=== PATIENT | male | born 1985 | race Caucasian/White ===

== ENCOUNTER 2021-10-13 21:36 | Emergency (ER) | payer SELFPAY ==
[~2021-10-13] VITALS: Ht 172.7 cm; Wt 217.7 kg
[~2021-10-13 21:36] MED LIST: ACETAMINOPHEN-1 EAC1 PO; ACETAMINOPHEN325 M1 PO; AMOXICILLIN500 MG PO; AMOXICILLIN875 MG PO; CEFPODOXIME PR200 MG PO; CLINDAMYCIN HC300 MG PO; DOXYCYCLINE HY100 MG PO; IBUPROFEN400 MG PO; MOTRIN IB200 MG PO; NAPROSYN500 MG PO; PERCOCET 7.5-31 EACH PO
--- NOTE | 2021-10-14 06:40 | EKG ---
[facility] [address] [facility] [place] [address] Signed Normal sinus rhythm Nonspecific intraventricular conduction delay Borderline ECG No previous ECGs available Confirmed by GARTH GRESHAM MD ([id number]) on 10/14/2021 6:39:52 AM Electronically Signed By: GARTH GRESHAM MD 10/14/21 0640 PATIENT NAME: ALECIA FARIAS Electrocardiogram DATE OF : 89 PHYSICIAN: GARTH GRESHAM MD REPORT #: [id number] REPORT IS CONFIDENTIAL AND NOT TO BE RELEASED WITHOUT AUTHORIZATION
== END 2021-10-14 00:55 | disposition home or self-care (01) ==
LOC: ED 21:36
DX: R55 Syncope and collapse (principal); E86.0 Dehydration; I10 Essential (primary) hypertension; F17.200 Nicotine dependence, unspecified, uncomplicated; Z88.5 Allergy status to narcotic agent
CPT/HCPCS: 93005; 93010; 99284-25

== ENCOUNTER 2021-11-21 15:19 | Emergency (ER) | payer OTHER ==
[~2021-11-21] VITALS: Ht 172.7 cm; Wt 208.8 kg
[2021-11-21] MEDS ORDERED: CEPHALEXIN500 M1 PO (17:40)
== END 2021-11-21 18:29 | disposition home or self-care (01) ==
LOC: ED 15:19
DX: L03.116 Cellulitis of left lower limb (principal); R60.0 Localized edema; I10 Essential (primary) hypertension; F17.200 Nicotine dependence, unspecified, uncomplicated; Z88.5 Allergy status to narcotic agent
CPT/HCPCS: 36415; 80048; 85025; 93971; 96365; 96375; 99284-25; J0696; J1885

== ENCOUNTER 2022-07-31 14:03 | Inpatient (IN) | payer OTHER ==
[~2022-07-31] VITALS: Ht 172.7 cm; Wt 187.0 kg
[~2022-07-31 14:03] MED LIST changes: +CEPHALEXIN500 M1 PO
[2022-07-31] MEDS ORDERED: LISINOPRIL-HCT1 EACH PO (14:29)
--- NOTE | 2022-07-31 17:45 | NUR ---
PT TO UNIT VIA STRETCHER, PIVOT TRANSFER TO BED. LLE 2+ EDEMA, HOT TO THE TOUCH. BLE REDDNESS NOTED AND OUTLINED. POSITIVE PEDAL PULSES TO BLE. PT TEMP 100.0. PT ORIENTED TO CALL LIGHT, VERBALIZES UNDERSTANDING. CALL LIGHT IN REACH.
--- NOTE | 2022-07-31 19:02 | NUR ---
SPOKE WITH DR LO REGARDING PT TEMP OF 100.0, PT PAIN 8/10, POTASSIUM LAB OF 3.1 WELL FLUIDS GIVEN IN THE ER. DR ORDERED TORDAOL AND OXYCODONE FOR PAIN, POTASSIUM REPLACEMENT, NO FURTHER FLUID ORDERS. DISCUSSED PAIN MEDICATION PLAN WITH PT, PT AGREEABLE.
--- NOTE | 2022-07-31 19:25 | NUR ---
ASSUMED CARE OF PT UPON RECEIVING BEDSIDE HANDOFF REPORT FROM DAY RN. PT AOX4, NAD. PT REQUESTS PAIN MED. WILL MEDICATE PER MAR, CONTINUE TO MONITOR, AND FOLLOW POC.
--- NOTE | 2022-07-31 20:34 | NUR ---
call light answered, pt up 2pa with walker to bathroom for bm and void. pt slow moving and somewhat unsteady on feet d/t cellulitis but improved w/ use of walker. pt back in bed, call light in reach. primary rn brooklynn updated and aware.
--- NOTE | 2022-07-31 22:53 | NUR ---
ble elevated w/ pillows for comfort, pt interactive with hospital staff. call light in reach. will continue to monitor.
--- NOTE | 2022-08-01 02:42 | NUR ---
PT REQUESTED REMOVAL OF L HAND IV, DUE TO IT BEING PAINFUL. SITE AND SURROUNDING SKIN WNL. NO EVIDENCE OF INFILTRATION OR PHLEBITIS. WILL CONTINUE TO MONITOR AND FOLLOW POC.
--- NOTE | 2022-08-01 06:45 | NUR ---
PT WITH NO ACUTE EVENTS OVERNIGHT. ELEVATED TEMPS RESPONSIVE TO ANTIPYRETIC MEDS. NO SPREAD OF ERYTHEMA TO BLE. VSS, NAD. PAIN WELL-CONTROLLED WITH CURRENT PAIN REGIMEN. WILL CONTINUE TO MONITOR AND FOLLOW POC.
--- NOTE | 2022-08-01 07:28 | NUR ---
RECIEVED REPORT FROM FUENTES ARRIOLA. PT IS SLEEPING, BREATHING IS UNLABORED AND EVEN. TYLENOL EFFECTIVE. NO NEEDS AT THIS TIME, CALL LIGHT IN REACH.
--- NOTE | 2022-08-01 08:27 | NUR ---
PT IS AWAKE AND ALERT IN BED. ASKED APPROPRIATE QUESTIONS. ASSESSMENT COMPLETE. BREAKFAST CAME WHILE I WAS THERE. PT LEFT SITTING UP IN BED, EATING BREAKFAST. ALL PERSONAL BELONGINGS IN REACH, CALL LIGHT IN REACH.
--- NOTE | 2022-08-01 09:37 | NUR ---
THIS RN TO ROOM TO ASSIST WITH VITALS AND I/Os. VITAL SIGNS STABLE. PT VOIDING QUANTITY SUFFICIENT. PT ENCOURAGED TO GET UP TO CHAIR. PT AGREES. 1 PERSON ASSIST UP TO CHAIR FOR LINE AND TUBE MANAGEMENT. LINENS CHANGED. ROOM CLEANED. NO ADDITIONAL REQUESTS OR COMPLAINTS. CALL LIGHT WITHIN REACH.
--- NOTE | 2022-08-01 15:20 | NUR ---
PT SHOWERED INDEPENDENTLY WITH THERMOSTAT REPAIRER ASSIST INTO AND OUT OF THE SHOWER. PT TOLERATED IT WELL. DELAY IN INFUSIONS DUE TO LENGTH OF POTASSIUM INFUSION AND ABX INFUSION. PLAN CLEARED WITH PHARMACY TO RETIME NEEDED.
--- NOTE | 2022-08-01 15:24 | NUR ---
NOTED THAT PT IS FALLING BEHIND IN HIS ABX INFUSIONS. PT FINISHED WITH SHOWER AND BACK TO BED. PT REPORTS HE WOULD LIKE RIGHT AC IV REMOVED IT IS "SORE AND UNCOMFORTABLE AND I CAN'T TASTE IT" WHEN IT IS FLUSHED. PHARMACIST CALLED REGARDING ABX'S THAT ARE DUE. AMA STATES TO GIVE CEFEPIME OVER 30 MINUTES AND THEN VANCO WHILE POTASSIUM CONTINUES INFUSING IN A SECOND IV LINE. PT VERY DIFFICULT IV START WITH LIMITED VEIN ACCESS. IV'S STARTED TO BOTH RIGHT AND LEFT FORARM PER PROTOCOL. BRISK BLOOD RETURN NOTED FROM BOTH SITES. CEFEPIME GIVEN OVER 30 MINUTES THROUGH LEFT IV SITE FOLLOWED BY VANCO. POTASSIUM INFUSING THROUGH LEFT IV SITE. PT TOELRATED IV STARTS WELL AND IS TOLERATING INFUSIONS WELL. PT REPORTS HIS SHOWER "FELT REALLY GOOD." PT REPORTS 8/10 PAIN IN LEGS AFTER SHOWER AND REQUESTS "AN ANTIINFLAMATORY." SEE MAR FOR MEDICATION GIVEN. NO ADDITIONAL REQUESTS OR COMPLAINTS. PTS PRIMARY RN UPDATED. CALL LIGHT WITHIN REACH. BED RAILS UP.
--- NOTE | 2022-08-01 17:53 | NUR ---
PT CALL LIGHT ON. PT REQUESTS PAIN MEDICATION. PUMP ALARMING, POTASSIUM INFUSION COMPELTE. RIGHT FORARM IV FLUSHED AND SALINE LOCKED, ALCOHOL CAP APPLIED. PT REPORTS 8/10 PAIN IN BILATERAL LOWER LEGS. SEE MAR FOR MEDICATION GIVEN. PT HAS LEFT LEG IN SLING INTERMITTANTLY. FRIENDS/FAMILY AT BEDSIDE. NO ADDITIONAL REQUESTS OR COMPLAINTS. CALL LIGHT WITHIN REACH. BED RAILS UP.
--- NOTE | 2022-08-01 19:30 | NUR ---
ASSUMED CARE OF PATIENT UPON RECEIVING BEDSIDE HANDOFF REPORT FROM DAY NURSE. PT RESTING IN BED, AOX4, NAD, NO C/O, PAIN WELL-CONTROLLED. WILL CONTINUE TO MONITOR AND FOLLOW POC.
--- NOTE | 2022-08-01 22:40 | NUR ---
IV PUMP ALARMING, ISSUE RESOLVED. IV SITE WNL, IV ABX CONTINUES TO INFUSE DIRECTED. SANDWHICH BOX ALSO PROVIDED PER pt REQUEST. CALL LIGHT IN REACH.
--- NOTE | 2022-08-02 06:50 | NUR ---
PT WITH NO ACUTE OVERNIGHT EVENTS. WILL CONTINUE TO MONITOR AND FOLLOW POC.
--- NOTE | 2022-08-02 07:37 | NUR ---
REPORT RECEIVED FROM FUENTES ARRIOLA. PT RESTING IN BED ON LEFT SIDE, AWAKE AND ALERT. PT REPORTS 4/10 PAIN IN BLE AND DENIES NEED FOR ADDITIONAL PAIN MEDICATION AT THIS TIME. NO ADDITIONAL REQUESTS OR COMPLAINTS AT THIS TIME. CALL LIGHT WITHIN REACH.
--- NOTE | 2022-08-02 08:23 | NUR ---
MORNING ASSESSMENT AND MEDICATION DUE. THIS RN TO ROOM AND PT FOUND UP IN CHAIR. PT REPORTS HE GOT HIMSELF UP TO THE CHAIR. PT REPORTS THAT HE GETS ARROUND AT HOME WITHOUT FALLS BUT DOES HAVE DIZZINESS AT HOME WHICH HE ATTRIBUTES TO HIS BLOOD PRESSURE PILLS. PT STATES HE TAKES LISINOPRIL WITH HCTZ AT HOME ONCE A DAY IN THE MORNING. NOTED THAT BLOOD PRESSURE PILL WAS HELD LAST NIGHT. MD CONSULTED AND LISINOPRIL DC'D FOR THIS MORNING. AWAITING NEW ORDERS. PT DENIES DIZZINESS AT THIS TIME BUT IS NOTED TO UNSTEADY ON FEET WHICH HE ATTRIBUTES TO PAIN. PT RPEORTS 5/10 PAIN BLE AND DECLINES TYELNOL AND TORADOL AT THIS TIME STATING HE WILL "JUST WAIT FOR THE OTHER ONE." FALL PREVENTION EDUCATION DONE WITH PT AND PT VERBALIZES UNDERSTANDING AND STATES HE WILL CALL WHEN NEEDING TO GET UP. BMAT LEVEL 3 AT THIS TIME. PT ALERT AND ORINTED TO ALL. PT DENEIS NUMBNESS OR TINGLING TO EXTREMITIES. HEART TONES REGULAR. LUNG SOUNDS CLEAR. EDEMA TO BLE CONTINUES. RIGHT LOWER EXTREMITY MEASURES AT 51CM TODAY AT WIDES POINT AND LEFT LOWER EXTREMITY MEASURES AT 54CM AT WIDEST POINT. NOTED THAT THIS IS LARGER THAN LAST NIGHTS MEASUREMENTS. BILATEARL LOWER EXTREMITIES ARE WILLY, WARM AND REDENED IN APPEARANCE. REDENESS REMAINS WITHIN OUTLINED AREAS. STRONG PLANTAR AND DORSI FLEXION PRESENT. PT REMAINS UP TO CHAIR, EATING BREAKFAST. NO ADDITIONAL REQUESTS OR COMPLAINTS. CALL LIGHT WITHIN REACH.
--- NOTE | 2022-08-02 10:22 | NUR ---
NEW MEDICATION DUE. PT REMAINS UP TO CHAIR. PT VERBALIZES UNDERSTANDING OF PLAN OF CARE AND MEDICATION. BLOOD PRESSURE REMAINS IN THE 140'S. SEE MAR FOR MEDICATION GIVEN. PT REPORTS 7/10 PAIN IN BLE AND REQUESTS ADDITONAL MEDICATION, SEE MAR FOR MEDICATION GIVEN. NO ADDITIONAL REQUESTS OR COMPLAINTS. CALL LIGHT WITHIN REACH. BED RAILS UP.
--- NOTE | 2022-08-02 12:15 | NUR ---
LUNCH DELIVERED TO PT. PT REMAINS UP TO CHAIR. PT REPORTS PAIN HAS IMPROVED NOW 4/10 IN BILATERAL LOWER EXTREMITIES. PT DENIES NEED FOR ADDITIONAL PAIN MEDICATION. URINAL EMPTIED OF 350 ADN 450ML CLEAR YELLOW URINE. PT DENEIS ADDITIONAL REQUESTS OR COMPLAINTS. CALL LIGHT WITHIN REACH.
--- NOTE | 2022-08-02 13:38 | NUR ---
AFTERNOON ASSESSMENT AND MEDICATION DUE. PT RESTING IN BED ON BACK IN BED, SUPINE POSITION LEANING SLIGHTLY TO RIGHT SIDE. PT AWAKENS TO MOVEMENT IN THE ROOM AND REPORTS "I THINK I WAS HOLDING MY BREATH IN MY SLEEP THERE." PT REPORTS HE HAS BEEN TESTED FOR SLEEP APENEA BUT HAS "NEVER GOT THAT MACHINE." EDUCATION DONE WITH PT REGARDING SLEEP APENEA AND FOLLOWING UP WITH HIS PRIMARY CARE PROVIDER. PT VERBALIZES UNDERSTANDING AND STATES HE PLANS TO FOLLOW UP. PT ALERT AND OREINTED TO ALL. CMS REMAINS INTACT. PT REPORRTS PAIN IS WELL CONTROLLED AT A 3/10 AT THIS TIME. PT STATES "WOW THAT PAIN STUFF REALLY TAKES IT OUT OF YOU," HINTING THAT PAIN MEDICATION IS VERY STRONG FOR HIM. PT ENCOURAGED TO TRY OTHER MEDICATIONS SUCH TYELNOL AND TORDAL MOVING FORWARD. PT DENIES NEED FOR ADDITIONAL PAIN MEDICATION AT THIS TIME. SWELLING, REDNESS AND HEAT CONTINUE TO BLE. REDNESS REMAINS WITHIN THE MARKED AREAS. LEFT LEG MEASURES 54CM AT WIDEST/MARKED PART. RIGHT LEG MEASURES 50CM AT WIDES/MARKED PART. PT COTNINUES TO KEEP RIGHT LEG ELEVATED IN THE [place] SLING AT TIMES. NO ADDITIONAL REQUESTS OR COMPLAINTS. CALL LIGHT WITHIN REACH. BED RAILS UP.
--- NOTE | 2022-08-02 15:26 | NUR ---
PT HOOKED UP TO DIEUDONNE CALHOUN. WRAPPED AC HE BENDS IT. EMPTIED URINAL. PT DENIES FURTHER CONCERNS.
--- NOTE | 2022-08-02 16:33 | NUR ---
THIS RN TO ROOM TO CHECK ON PT. PT RESTING ON RIGHT SIDE, TALKING WITH FRIENDS ON THE PHONE. PT RPEORTS 7/10 PAIN IN BILATERAL LEGS AND REQUESTS PAIN MEDICAITON, SEE MAR FOR MEDICATION GIVEN. ICE WATER REFILLED. NO ADDITIONAL REQUESTS OR COMPLAINTS. CALL LIGHT WITHIN REACH. BED RAILS UP.
--- NOTE | 2022-08-02 16:56 | NUR ---
PT HERE FOR SPESIS RELATED TO BLE CELLULITIS. PT UP WITH STAND BY ASSIST IN ROOM TO CHAIR AND TO AMBULATE THIS SHIFT. PT TOLERATING REGULAR DIET WITH GOOD APPITTIE. BLOOD PRESSURE MEDICATIONS WITH HCTZ RESUMED WITH GOOD URINE OUTPUT RESULTS. PRN PAIN MEDICATION GIVE. LEGS MEAUSRED: REDENESS, WARMTH AND WILLY SKIN BILATERALLY TO LOWER LEGS REMAINS, GENERALLY UNCHANGED. PT ENCOURAGED TO KEEP LEGS ELEVATED. IV ABX GIVEN. PT VOIDING QUANITITY SUFFICIENT. PT USES CALL LIGHT AND MAKES NEEDS KNOWN.
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
--- NOTE | 2022-08-02 19:20 | NUR ---
ASSUMED CARE OF PT UPON RECEIVING BEDSIDE HANDOFF REPORT FROM DAY NURSE. PT RESTING IN BED, NAD, NO C/O. ENCOURAAGED PT TO ELEVATE LOWER EXTREMITIES. WILL CONTINUE TO MONITOR AND FOLLOW POC.
--- NOTE | 2022-08-03 06:00 | NUR ---
PATIENT TOOK SHOWER. CHANGED BED LINEN. PATIENT IS UP IN THE CHAIR. CALL LIGHT AND SIDE TABLE WITHIN REACH. PRIMARY RN IS IN THE ROOM.
--- NOTE | 2022-08-03 07:20 | NUR ---
PT HAD NO ACUTE OVERNIGHT EVENTS. VSS, NAD, PAIN WELL-CONTROLLED WITH CURRENT PAIN REGIMEN. ATTEMPTED IV START X2 ON PT IN ORDER TO RUN SCHEDULED ABX, AND WAS UNABLE TO GAIN ACCESS. ENDORSED TO DAY NURSE. HANDED OFF CARE OF PATIENT TO DAY NURSE AT BEDSIDE REPORT.
--- NOTE | 2022-08-03 07:30 | NUR ---
REPORT RECEIVED FROM FUENTES ARRIOLA. PT UP TO CHAIR. PT REPORTS HE SLEPT WELL LAST NIGHT. PT REPORTS PAIN IS WELL CONTROLLED AT THIS TIME CURRENTLY 4-11/04. PT DENIES NEED FOR ADDITIONAL PAIN MEDICAITON. NO IV LINE CURRENTLY IN PLACE. FLAKO STATES SHE ATTEMPTED X1. FUENTES PARKER TO BEDSIDE TO ATTEMPT LINE START. PT DENIES ADDITIONAL REQUESTS OR COMPLAINTS AT THIS TIME. CALL JUSTIN CARRILLO.
--- NOTE | 2022-08-03 09:11 | NUR ---
MORNING ASSESSMENT AND MEDICATION DUE. PT REPORTS BURNING AT LEFT ARM IV SITE JUST STARTED BY FUENTSE KIRBY. LUMP NOTED AROUND IV SITE, APPEARS INFILTRATED. IV DC'D PER PROTOCOL. ICE APPLIED PER PROTOCOL FOR VANCO INFILTRATION. NEW IV STARTED TO RIGHT UPPER ARM PER PROTOCOL. BRISK BLOOD RETURN NOTED. IV ABX INFUSIONS CONTINUED. PT REPORTS 7/10 PAIN IN BILATERAL LEGS. PT REQUESTS PAIN MEDCIATION, SEE MAR FOR MEDICATION GIVEN. PT ALERT AND OREINTED TO ALL. LUNG SOUNDS CLEAR. HEART TONES REGULAR. ABDOMEN SOFT AND NON TENDER. BILATERAL LOWER EXREMITES REMAIN HOT TO TOUCH, REDDENEDS AND WILLY IN APPEARANCE. PT REPORTS LEGS FEEL WORSE TODAY. PT EXPRESSES OPINION THAT HIS LEGS ARE NOT IMPROVING AND CONTINUE TO GROOW WORSE. REDNESS REMAINS WITHIN THE MARKED AREAS AND WARMTH UNCHANGED. LEFT LEG MEASURES AT 53CM TODAY AT LARGEST CIRCUMFRENCE. RIGHT LEG MEAUSRES AT 48CM. WRINKLES APPARENT ON LOWER LEGS AT THIS TIME SUGGESTING EDEMA MAY BE IMPROVING. PT REPROTS NORMAL, ALTHOUGH PAINFUL. SENSATION TO BLE. MOVEMENT INTACT ALTHOUGH PT DOES NOT WANT TO PUT WEIGHT ON LEFT LLE R/T PAIN THIS MORNING. 1 PERSON ASSIST BACK TO BED. PT VERY UNSTABLE ON FEET. LEFT LEG ELEVATED IN SLING. PT DENIES ADDITIONAL REQUESTS OR COMPLAINTS. CALL LIGHT WIHTIN REACH. BED RAILS UP.
--- NOTE | 2022-08-03 10:14 | NUR ---
THIS RN TO ROOM TO CHECK ON PT. PT RESTING ON RIGHT SIDE WITH EYES CLOSED. RESPIRATIONS EVEN AND UNLABORED. MILD SNORNING NOTED. PT ALLOWED TO REST UNDSTURBED. CALL LIGHT WITHIN REACH. BED RAILS UP.
--- NOTE | 2022-08-03 11:12 | NUR ---
THIS RN TO ROOM TO CHECK ON PT. PT RESTING ON BACK, SUPINE POSITION WITH EYES CLOSED, RESPRIATIONS EVEN AND UNLABORE. SNORNING NOTED. IV PUMP ALARMING, VANCO INFUSION COMPLETE. CEFEPIME INFUSION CONTINUES. PT ALLOWED TO REST. CALL LIGHT WIHTIN REACH. BED RAILS UP.
--- NOTE | 2022-08-03 12:12 | NUR ---
THIS RN TO ROOM TO CHECK ON PT. PT AWAKE AND RESTING IN BED, HEAD OF BED AT 27 DEGREES. PT REPORTS HE "HAD A REALLY GOOD NAP." PT REPORTS 6/10 PAIN IN BLE AND REQEUSTS PAIN MEDICATION, SEE MAR FOR MEDICATION GIVEN. PT ENCOURAGED TO ELEVATE LEGS, LEFT LEG PLACED BACK IN SLING AND RIGHT LEG PLACED ON PILLOWS. PHOTOGRAPHS TAKEN OF LEGS. REDNESS TO LEFT FOOT NOTE TO BE 0.5CM OUT SIDE OF MAKED LINE TOWARD MIDDLE TOE. PT REPORTS HE SPOKE WITH DR LO AND VERBALIZES UNDERSTANDING OF PLAN OF CARE. NO ADDITIONAL REQUESTS OR COMPLAINTS. ICE WATER REFILLED. [facility].
--- NOTE | 2022-08-03 12:15 | NUR ---
INTO PATIENT ROOM, PATIENT AWAKE WATCHING TV. PATIENT STATES HE LIVE IN AN APARTMENT WITH HIS FAMILY AND DOGS. PATIENT DOES HAVE TWO FLIGHTS ON STAIRS INTO THE HOME, BUT USUALLY CAN MANAGE THEM WITH NO ISSUES. PATIENT DOES NOT REQUIRE ANY DME. PATIENT IS ESTABLISHED WITH AND HAS BEEN VISITING DR. GRANADO. DENIES HOUSING, UTILITY AND FOOD DISPARITIES. NO FURTHER QUESTIONS OR CONCERNS AT THIS TIME.
--- NOTE | 2022-08-03 13:55 | NUR ---
AFTERNOON ASSESSMENT AND MEDICATION DUE. PT RESTING IN BED, VISITING WITH A FRIEND AND HIS 2 YEAR OLD. PT REPORTS 5/10 PAIN AND REQUESTS MEDICATION, SEE MAR FOR MEDICATION GIVEN. IV ASSESSED, WNL, BLOOD RETURN NOTED. NO REDNESS OR SWELLING NOTED. PT REMAINS ALERT ADN OREINTD WITH SENSATION INTACT AND CMS INTACT. LUNG SOUNDS REMAIN CLEART. HEART TONES REGULAR. REDNESS CONTINUES TO CREAP OUTSIDE OF MARKED LINE ON PTS LEFT FOOT. NOW RED UP TO MIDDLE TOE. NEW LINE MARKED. IMAGING ORDERD AND PT UPDATED ON PLAN FOR IMAGING. ABDOMEN SOFT AND NON TENDER. BOWEL TONES ACTIVE. PT CONTINUES TO REPORT MILD CONSTIPATION. MEDICATIN GIVEN. SWELLING AND REDNESS TO INFILTRATED IV SITE TO LEFT AC RESOLVED. PT DENIES PAIN AT SITE. IMAGING ARRIVED TO TAKE PT FOR CT SCAN. PT TRASFERS SELF TO WHEELCHAIR. PT TO CT. NO ADDITIONAL REQUESTS OR COMPLAINTS. CALL LIGHT BUDDY CARRILLO.
--- NOTE | 2022-08-03 14:36 | NUR ---
PT RETURNED FROM IMAGING. PT TRANSFERSE SELF BACK TO BED WITH 1 PERSON ASSIST. LUNCH REHEATED FOR PT. PT SITTING ON EDGE OF BED FOR LUNCH. NO ADDITIONAL REQUESTS OR COMPLAINTS. CALL LIGHT WITHIN REACH. BED RAILS UP.
--- NOTE | 2022-08-03 15:24 | NUR ---
ABX DUE. PT RESTINGON RIGHT SIDE WITH EYES CLOSED. IV ASSESSED, WNL. NO S/S OF PHLEBITIS NOTED. IV ABX STARTED. PT CONTINUES RESTING WITH EYES CLOSED. LEFT LEG ELEVATED IN SLING. NO ADDITIONAL NEEDS. CALL LIGHT WITHIN REACH. BED RAILSUP.
--- NOTE | 2022-08-03 16:30 | NUR ---
THIS RN TO ROOM TO CHECK ON PT. PT RESTING IN BED ON LEFT SIDE WATCHING VIDEOS ON HIS PHONE. IV ABX INFUSING. LEFT LEG ELEVATED IN SLING. PT REPORTS PAIN IS WELL CONTROLLED AND DENIES NEED FOR ADDITONAL PAIN MEDICATION AT THIS TIME. ICE WATER REFILLED. URINALS EMPTIED OF CLEAR YELLOW URINE. NO ADDITIONAL REQUESTS OR COMPLAINTS. CALL LIGHT WITHIN REACH. BED RAILS UP.
--- NOTE | 2022-08-03 17:01 | NUR ---
PT HERE FOR SPESIS RELATED TO BLE CELLULITIS. PT UP WITH STAND BY ASSIST IN ROOM TO CHAIR, SPENT MOST OF THE DAY IN BED. PT TOLEARTING REGULAR DIET W/GOOD APPITTIE. BLOOD PRESSURE MEDICATIONS WITH HCTZ TRANSITIONED TO PTS HOME MEDICATION. PRN PAIN MEDICATIONS GIVEN, PT REPORTS INCREASED PAIN TO LLE THIS SHIFT. LEGS MEAUSRED: REDENESS, WARMTH AND WILLY SKIN BILATERALLY TO LOWER LEGS REMAINS, LEFT FOOT SHOWS INCREASED ERYTHEMA UP TOP OF FOOT TOWRAD MIDDLE TOE. NEW AREA OUTLINE. CT SCAN PERFORMED. PT ENCROAUGED TO KEEP LEGS ELEVATED. IV ABX GIVEN. PT VOIDING QUANITITY SUFFICIENT. PT USES CALL LIGHT AND MAKES NEEDS KNOWN.
--- NOTE | 2022-08-03 17:06 | NUR ---
pt sitting up in chair for meal. call light within reach no further tasks at this time
--- NOTE | 2022-08-03 17:42 | NUR ---
THIS RN TO ROOM TO CHECK ON PT. DINNER DELIVERED. PT TALKING WITH FRIEND ON THE PHONE. PT SMILING AND LAUGHING WITH FRIEND. VANCO INFUSION COMPLETE. CEFEPINE CONTINUES. IV REMAINS WNL. NO S/S OF PHLEBITIS NOTED. PT DENIES ADDITIONAL REQUESTS OR COMPLAINTS. CALL LIGHT WITHIN REACH.
--- NOTE | 2022-08-03 18:53 | NUR ---
THIS RN TO ROOM TO CHECK ON PT. PT REMAINS UP TO CHAIR. PT REPORTS 6/10 PAIN IN BLE, SEE MAR FOR MEDICATION GIVEN. URINAL EMPTIED OF 325 CLEAR YELLOW URINE. PT ANTICIPATING ARRIVAL OF BARIATRIC BED AND REQUESTS TO REMAIN UP TO CHAIR AT THIS TIME. NO ADDITONAL REQEUSTS OR COMPLAINTS. CALL LIGHT WITHIN REACH. BED RAILS UP.
--- NOTE | 2022-08-03 19:19 | NUR ---
REPORT RECEIVED FROM DAY SHIFT RN. PT SITTING IN RECLINER ALERT AND ORIENTED. DENIES NEEDS. WHITE BOARD UPDATED. CALL LIGHT IN REACH.
--- NOTE | 2022-08-03 20:15 | NUR ---
BARIATRIC BED CAME. BED MADE. V/S AND I&O'S TAKEN AND RECORDED. FAMILY IN THE ROOM. PRIMARY RN WAS IN THE ROOM.
--- NOTE | 2022-08-03 20:30 | NUR ---
EVENING ASSESSMENT COMPLETE. SCHEDULED MEDS ADMIN PER EMAR. IV ABX INFUSING WNL. PT REPORTS BLE PAIN IS TOLERABLE AT THIS TIME. BLE ELEVATED IN RECLINER. EDEMA AND REDNESS/WARMTH NOTED. REDNESS REMAINS WITHIN OUTLINE. VISITOR IN ROOM. BARIATRIC BED DELIVERED AND MADE. PT DENIES QUESTIONS OR CONCERNS. CALL LIGHT IN REACH.
--- NOTE | 2022-08-03 21:15 | NUR ---
PATIENT CALLED STATED HE IS READY TO GO TO BED. SBA USING WALKER FROM CHAIR TO BED. CALL LIGHT AND SIDE TABLE WITHIN REACH. NO FURTHER NEEDS AT THIS TIME.
--- NOTE | 2022-08-03 22:41 | NUR ---
CALL LIGHT ANSWERED. PT REPORTS PAIN WITH IV ABX INFUSION. IV STOPPED. DIFFICULT AND PAINFUL WITH FLUSH. IV IN RIGHT UPPER ARM DC'D WNL. TIP INTACT. SLIVER LAP MACHINE TENDER TO COME LOOK FOR NEW IV ACCESS PT IS DIFFICULT START.
--- NOTE | 2022-08-04 00:01 | NUR ---
IV X 2 STARTED BY SDET RN. PT JOSY WELL. IV ABX INFUSING WNL. PT REPORTS BLE PAIN /. PRN FOR PAIN ADMIN PER EMAR. BLE ELEVATED ON PILLOWS. NO FURTHER NEEDS.
--- NOTE | 2022-08-04 01:47 | NUR ---
ANSWERED BATHROOM LIGHT. PATIENT IS BACK IN BED. NO BM THIS TIME ONLY URINE UNMEASURED. PRIMARY RN WAS WITH PATIENT.
--- NOTE | 2022-08-04 02:06 | NUR ---
IV ABX INFUSING NWL. PT REPORTS BLE PAIN 11/04. PRN FOR PAIN ADMIN PER EMAR. FRESH WATER PROVIDED. NO FURTHER NEEDS.
--- NOTE | 2022-08-04 06:19 | NUR ---
VS AND I&O OBTAINED. SL IN RIGHT AC FLUSHED WITH NS. BRISK BLOOD RETURN NOTED. IV ABX INFUSING PER ORDER. PT DENIES PAIN WITH INFUSION. NO FURTHER NEEDS.
--- NOTE | 2022-08-04 07:07 | NUR ---
REPORT RECEIVED FROM FUENTES LIU. PT RESTING ON LEFT SIDE WATCHING VIDEOS ON HIS PHONE. PT REPORTS 5/10 PAIN IN BLE BUT DECLINES PAIN MEDICATION AT THIS TIME. PT DENIES ADDITIONAL REQUESTS OR COMPLAINTS. CALL LIGHT WITHIN REACH. BED RAILS UP.
--- NOTE | 2022-08-04 07:47 | NUR ---
MORNING ASSESSMENT AND MEDICATION DUE. PT RESTING ON LEFT SIDE WITH EYES CLOSED. PT AWAKENS TO MOVEMENT IN THE ROOM. PT REPORTS ONGOING 5/10 PAIN IN BILATEARL LOWER EXTREMTIES AND REQUESTS PAIN MEDICATION. SEE MAR FOR MEDICATION GIVEN. PT EDUCATION DONE REGARDING CONSTIPATION AND PAIN MEDICATION. PT VERBALIZES UNDERSTANDING AND AGREES TO CONTINUE BOWEL MEDICATIONS. PT REPORTS ONGOING CONSTIPATION BUT STATES HE IS PASSING GAS. BOWEL TONES ACTIVE, ABDOMEN SOFT AND NON TENDER. PT ALERT AND OREINTED TO ALL. HEART TONES REGULAR. LUNG SOUNDS CLEAR. +3 PITTING EDEMA CONTINUES TO BLE. BOTH LOWER LEGS HOT TO TOUCH, WILLY AND VERY PAINFUL. LEFT LOWER EXTREMITY MEASURES 51CM, RIGHT LOWER EXTREMITY 48CM AT LARGEST CIRCUMFRENCE. WRINKELING TO SKIN NOTED SUGGESTING POSSIBLE IMPROVEMENT TO EDEMA. REDNESS REMAINS WITH IN MARKED AREA. PT REPORTS HIS LEFT ANKLE IS THE MOST SORE AND PAINFUL. PT NOTED TO BE VOIDING LARGE AMOUNTS, NEAR 3000ML IN THE LAST 8 HOURS. PT ALSO DRINKING LARGE AMOUNTS (NEAR 1200ML IN THE LAST 8 HOURS). MEDICATIONS GIVEN. PT REPORTS HE TAKES HIS BLOOD PRESSURE MEDICATIONS AT HOME INTERMITTANLY "WHEN I FEEL LIKE IT." PT COMMENTS THAT HE "DID FEEL ANY DIFFERENT" WHEN TAKING HIS BLOOD PRESSURE MEDICATION. EDUCATION DONE WITH PT REGARDING BLOOD PRESSURE CONTROL AND MEDICATION, PT VERBALIZES UNDERSTANDING. NO ADDITIONAL REQUESTS OR COMPLAINTS AT THIS TIME. CALL LIGHT WITHIN REACH. BED RAILS UP.
--- NOTE | 2022-08-04 09:36 | NUR ---
THIS RN TO ROOM TO CHECK ON. PT CONTINUES RESTING IN BED. PT ENCORUAGED TO GET UP TO CHAIR. PT DECLINES AT THIS TIME. LEGS NO LONGER ELEVATED. PT ENCOARUGED TO ELEVATE LEGS, AGREES. VITAL SIGNS STABLE BUT FOR TEMPERATURE THAT WAS ORIGINALLY NOTED TO BE 99.5. I.S. PROVIDED. PT DEMONSRATES USE REACHING 2500ML X10. TEMPERATURE REASSED AND FOUND TO BE 99.0. PT DENIES CHILLS OR FEELING COLD. PT REPORTS PAIN HAS IMPROVED NOW AT 4/10 IN BLE. PT REQUESTS ADDTIIONAL MEDICATION. SEE MAR FOR MEDICATION GIVEN. VANCO INFUSION COMPLETE. CEFEPIME INFUSION CONTINUES. NO ADDITIONAL REQUESTS OR COMPLAINTS. CALL LIGHT WITHIN REACH. BED RAILS UP.
--- NOTE | 2022-08-04 10:32 | NUR ---
THIS RN TO ROOM TO CHECK ON PT. PT SITTING ON EDGE OF BED. PT REPORTS 4/10 PAIN CONTINUES IN BLE. PT REPORTS PAIN IS WORSE WITH LEGS DOWN AND BETTER WHEN THEY ARE ELVATED. PT REPORTS THROBBING WITH LEGS DOWN. PT UP TO STAND AND USE URINAL. PT UP TO CHAIR AND REQUESTS "THE OTHER BED" BACK TO HIS ROOM. RIVERA CLEAR UPDATED FOR BED EXCHANGE. STAND BY ASSIST UP TO CHAIR FOR LINE AND TUBE MANAGEMENT. PT DENIES ADDITIONAL REQUESTS OR COMPLAINTS. CALL JUSTIN CARRILLO.
--- NOTE | 2022-08-04 10:54 | NUR ---
THIS MORNING BEFORE BREAKFAST CAME PATIENT WASHED HIS FACE AND DID ORAL CARE.
--- NOTE | 2022-08-04 11:06 | NUR ---
HOURLY ROUNDING: PT RESTING IN CHAIR, REPORTS HE ALMOST FEEL ASLEEP. PT REPORTS PAIN REMAINS WELL CONTROLLED AND DENIES NEED FOR ADDITIONAL PAIN MEDICAITONS. PT ENCOAURGED TO REST. PT REMAINS UP TO CHAIR. CALL LIGHT WITHIN REACH.
--- NOTE | 2022-08-04 11:30 | NUR ---
Spoke with pt and he denies needs. States he has difficulty walking. He has a walker at home.
--- NOTE | 2022-08-04 12:07 | NUR ---
LUNCH DELIVERED TO PT. PT RESTING IN CHAIR WITH EYES CLOSED. PT AWAKENS TO MOVEMENT IN THE ROOM. PT REPORTS A HEADACHE. PT DOES NOT RATE PAIN STATING "I JUST NEED TO SLEEP." COOL CLOTH PROVIDED. LIGHTS DIMMED. PT DENIES ADDITIONAL REQUESTS OR COMPLAINTS. CALL LIGHT WITHIN REACH.
--- NOTE | 2022-08-04 13:14 | NUR ---
THIS RN TO ROOM TO CHECK ON PT. PT REMAINS UP TO CHAIR, REPORTS HE JUST WOKE UP FROM HIS NAP. PT REPORTS HEADACHE HAS RESOLVED. PT REPORTS 4/10 PAIN IN BLE AND DENEIS NEED FOR PAIN MEDICATION. NO ADDITIONAL REQUESTS OR COMPLAINTS. CALL LIGHT WITHIN REACH. REGIONAL ACCOUNT DIRECTOR AT BEDSIDE WORKING WITH PT.
--- NOTE | 2022-08-04 14:43 | NUR ---
AFTERNOON ASSESSMENT AND MEDICATION DUE. ABX HUNG BY LISA, RN, WHO REPORTS THAT PTS LEFT AC IV WAS PAINFUL WITH FLUSHING. IV ASSESSED, BY THIS RN, CONTINUES TO FEEL PAINFUL "LIKE BEFORE IT WENT BAD THE OTHER DAY." IV DC'D PEROTOCOL, GAUZE AND COBAN APPLIED. RIGHT AC IV REMAINS WNL, NO S/S OF PHELEBITIS NOTED. IV ABX INFUSING. PT REPORTS ONGOING 5/10 PAIN IN BLE. SEE MAR FOR MEDICATION GIVEN. PT ALERT AND ORIETNED TO ALL. LUNG SOUNDS CLEAR. HEART TONES REGULAR. WARTH, REDNESS AND WILLY APPEARANCE TO BLE APPEARS GENERALLY UNCHANGED ALTHOUGH REDNESS APPEARS TO BE RECEIDING FROM MARKED LINE ON LEFT LEG. PT CONTINUES TO REPORT CONSTIPATION. PT ENCORUAGED TO TRY STRONGER BOWEL MEDICAITONS IF NO RESULTS BY TONIGHT. PT AGREES. BOWEL TONES ACTIVE. ABDOMEN SOFT AT THIS TIME. PT REPORTS FEELING MORE AWAKE THIS AFTERNOON. NO ADDIITONAL REQUESTS OR COMPLAINTS. CALL LIGHT WITHIN REACH.
--- NOTE | 2022-08-04 15:39 | NUR ---
IV VANCO INFUSING FOR 2 HOURS. PATIENT DENIES OTHER NEEDS.
--- NOTE | 2022-08-04 15:59 | NUR ---
THIS RN TO ROOM TO CHECK ON PT. PT REMAINS UP TO CHAIR. VISITING WITH FRIEND. PT REPORTS PAIN IN BLE IS "ONLY A 4, IT HAS GONE DOWN A LOT." PT FEELS HE IS CLOSE TO HAVING A BOWEL MOVEMENT WELL AND STATES HE WILL CALL AND IS NOT READY TO GET UP TO RESTROOM YET. NO ADDITIONAL REQUESTS OR COMPLAINTS. CALL LIGHT BUDDY CARRILLO.
--- NOTE | 2022-08-04 16:21 | NUR ---
PT HERE FOR SPESIS RELATED TO BLE CELLULITIS. PT UP WITH STAND BY ASSIST IN ROOM TO CHAIR. PT TOLEARTING REGULAR DIET W/GOOD APPITITE. PRN PAIN MEDICATIONS GIVEN FOR PAIN TO BLE, MOSTLY LLE. LEGS MEAUSRED: REDENESS, WARMTH AND WILLY SKIN BILATERALLY TO LOWER LEGS REMAINS, LEFT LEG/FOOT ERYTHEMA UNCHANGED. RIGHT LEG ERYTHEMA IMPROVING. PT PARTICIPATING IN CARES. CONSTIPATION ONGOING WITH ADDITIONAL BOWEL MODICATIONS GIVEN THIS SHIFT. PT IS ENCORUAGED TO KEEP LEGS ELEVATED. IV ABX GIVEN. PT VOIDING LARGE AMOUNTS. PT USES CALL LIGHT AND MAKES NEEDS KNOWN.
--- NOTE | 2022-08-04 17:10 | NUR ---
HOURLY ROUNDING: DINNER DELIVERED TO PT. PT REMAINS UP TO CHAIR. PT REPORTS PAIN IS WELL CONTROLLED. PT DENIES REQUESTS OR COMPLAINTS. CALL LIGHT WITHIN REACH.
--- NOTE | 2022-08-04 18:21 | NUR ---
PT CALL LIGHT ON. PT REQUESTS TO GET BACK TO BED. STAND BY ASSIST BACK TO BED, PT REMAINS UNSTEADY ON FEET. PT REPORTS 4/10 PAIN IN BLE THAT REMAINS WELL CONTROLLED. PT NOTES DEPENDANT EDEMA TO LLE, PT ENCORUAGED TO KEEP LEG RAISED, LEG PLACED IN SLING LIFT. PT EATING DINNER. NO ADDTIONAL REQUESTS OR COMPLAINTS. CALL LIGHT WIHTIN REACH. BED RAILS UP.
--- NOTE | 2022-08-04 18:45 | NUR ---
DISCUSSED BOWEL MEDICATIONS THAT DR. KERN ORDERED. PATIENT REFUSED LACTULOSE, PREFERS TO TRY AND HAVE A BM THIS EVENING BEFORE TAKING THE BISACODYL.
--- NOTE | 2022-08-04 19:11 | NUR ---
REPORT RECEIVED FROM DAY SHIFT RN. PT LYING IN BED ALERT AND ORIENTED. DENIES NEEDS. WHITE BOARD UPDATED. CALL LIGHT IN REACH.
--- NOTE | 2022-08-04 22:37 | NUR ---
EVENING ASSESSMENT COMPLETE. SCHEDULED MEDS ADMIN PER EMAR. PT REPORTS BLE PAIN 12/05. PRN FOR PAIN ADMIN PER EMAR. BLE REDNESS/WARMTH NOTED. REDNESS WELL WITHIN OUTLINE. CMS INTACT. RLE ELEVATED IN SLING. PT DENIES QUESTIONS OR CONCERNS. CALL LIGHT IN REACH.
--- NOTE | 2022-08-05 00:49 | NUR ---
CALL LIGHT ANSWERED. PT UP TO BR WITH SBA AND FWW TO HAVE XL SOFT BM AND VOID AN UNMEASURED AMOUNT. BACK TO BED, JOSY WELL. NO FURTHER NEEDS AT THIS TIME.
--- NOTE | 2022-08-05 02:34 | NUR ---
PT REPORTS BLE PAIN 12/05. PRN FOR PAIN ADMIN PER EMAR. ASSESSMENT COMPLETE. BLE ELEVATED ON PILLOWS. FRESH WATER PROVIDED. NO FURTHER NEEDS.
--- NOTE | 2022-08-05 06:20 | NUR ---
PT RESTING WITH EYES CLOSED. AWAKENS EASILY. IV ABX INFUSING WNL. PT DENIES PAIN WITH INFUSION. URINAL EMPTIED. LLE ELEVATED IN SLING. NO FURTHER NEEDS. CALL LIGHT IN REACH.
--- NOTE | 2022-08-05 07:10 | NUR ---
REPORT FROM NOE RN, PT IN BED RESTING WITH LEFT LEG ELEVATED. RN REPORTS BM YESTERDAY AND PT TOLL REG DIET. PICC CONSULT IS IN WAITING FOR EVAL. CALL LIGHT IN REACH.
--- NOTE | 2022-08-05 09:30 | NUR ---
sl iv - vanco complete - sn x2 introduced - assisting pt to put lotion/protective cream to bilateral lower extremitys.
--- NOTE | 2022-08-05 11:30 | NUR ---
Spoke with patient. He states he live with his aunt and uncle. He is not residing at his [facility], but staying in town. Aunt and uncle grocery shop and cook for this pt. 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 He has had several admits and ER visits for his cellulitis. He has not seen Podiatry and would like a referral. 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 He wanted to know if I could refer him to pain patients and I let him know, I would not be able to do so. Will ask Dr. Tee if he will refer this pt to Podiatry or if he will need to ask Dr. Dumont.
--- NOTE | 2022-08-05 14:15 | NUR ---
PT ALERT, ORIENTED AND RESTING IN BED WATCHING TV WITH L LEG ELEVATED ON SLING. PT REMEMBERS OUR DISCUSSIONS FROM PREVIOUS ADMITS, SAYS HE KNOWS HE NEEDS TO MAKE SOME DECISIONS, TOO YOUNG TO HAVE TO SUFFER WITH REOCCURING CELLULITIS THE REST OF HIS LIFE. PT HAS ESTABLISHED A PCP-DR GRANADO. PT REQUESTED I CONTACT FR LOJA AND REQUEST PRAYER, WILL INFORM FR LOJA. PT REQUESTED PRAYER AND THEN ASKED ME IF I KNEW ANYONE WHO USES MED. [place]. HE GROWS MED. AND SAID I DIDN'T THAT I AM AWARE OF AND THAT I COULDN'T. GAVE G.POST AND WILL FOLLOW
--- NOTE | 2022-08-05 14:30 | NUR ---
IN WITH DR KERN FOR ASSESSMENT ON PLAN OF CARE - ANTICIPATE MORE DAYS OF IV THERAPY AND PICC LINE. EDUCATED PT ON FOOT CARE AND RISK FOR INFECTION.
--- NOTE | 2022-08-05 15:12 | NUR ---
PT UP IN SHOWER - IV VANCO READY - DISCUSSED UP TO CH FOR MEALS AND AMB TO BR FOR URINATION. PT UNDERSTANDS GOAL TO INCREASE ACTIVITY.
--- NOTE | 2022-08-05 19:24 | NUR ---
Received bedside report from offgoing shift, hourly rounding initiated.
--- NOTE | 2022-08-05 21:42 | NUR ---
IN PT ROOM FOR ASSESSMENT, MEDICATION ADMINISTRATION, VS. PT RESTING ON BACK, NO COMPLAINT OF DICOMFORT, GIVEN MEDICATION FOR PAIN. PT CALL LIGHT IN REACH
--- NOTE | 2022-08-05 22:27 | NUR ---
IN PT ROOM FOR ROUNDING. PT RESTING ON BACK, WATCHING TV ON SMARTPHONE. PT ASKED FOR WATER WHICH WAS PROVIDED. PT HAS NO COMPLAINT OF PAIN OR DISCOMFORT, CALL LIGHT IN REACH.
--- NOTE | 2022-08-05 23:40 | NUR ---
In pt room for rounding. Pt resting on back, playing a game on his smart phone. Pt breathing even and unlabored, call light in reach, no complaint of pain.
--- NOTE | 2022-08-06 00:49 | NUR ---
in pt room for rounding. pt resting on back, LLE elevated with assistance of gage sling. pt states no complaint of pain at this time, breathing even and unlabored, call light in reach
--- NOTE | 2022-08-06 01:23 | NUR ---
In pt room for rounding. Pt resting on back with HOB elevated. Pt breathing even and unlabored, no indication of pain or discomfort. Pt call light in reach.
--- NOTE | 2022-08-06 03:11 | NUR ---
IN PT ROOM FOR MEDICATION ADMINISTRATION, ASSESSMENT. PT RESTING ON BACK, LEG ELEVATED BY KEYON SLING, CALL LIGHT IN REACH, NO COMPLAINT OF DISCOMFORT. PT REQUEST PAIN MEDICATION, PROVIDED,
--- NOTE | 2022-08-06 04:57 | NUR ---
IN PT ROOM TO RESPOND TO CALL LIGHT. PT REQUESTING WATER, VS WNL, I&O'S COMPLETE, NO COMPLAINT OF PAIN OR DISCOMFORT. CALL LIGHT IN REACH
--- NOTE | 2022-08-06 05:51 | NUR ---
in pt rom to clear pump - pt resting on side, watching a show on his phone. pt states no pain at this time, call light in reach
--- NOTE | 2022-08-06 07:00 | NUR ---
report from guy rn, pt resting, resp rate even, call light in reach.
--- NOTE | 2022-08-06 07:23 | NUR ---
IN TO CHECK ON PT. PT RESTING IN BED. ICE WATER PROVIDED. PT CO SORE THROAT. RN NOTIFIED. NO FURTHER NEEDS. CALL LIGHT WITHIN REACH
--- NOTE | 2022-08-06 09:13 | NUR ---
PT CALLED FOR NEW ICE WATER, WATER REFRESHED. PT STATED THAT HE "FELT HOT". I TOOK HIS TEMPERTAURE (99.0) GAVE HIM A COLD WASH CLOTH AND ICE PACK. RN NOTIFIED AND HE HAD ALREADY GOTTEN TYLENOL, WILL FOLLOW UP WITH PT. NO OTHER NEEDS AT THIS TIME.
--- NOTE | 2022-08-06 09:45 | NUR ---
PT IN CHAIR. PT TRAY MOVED CLOSER TO PT. PT URINAL EMPTIED. PT BLINDS SHUT PER PT REQ. NO NEEDS AT THIS TIME. CALL LIGHT WITHIN REACH
--- NOTE | 2022-08-06 11:24 | NUR ---
PT UP IN CH, IV COMPLETE, SL FLUSHES WELL. PT CALL LIGHT IN REACH AND DENIES NEEDS.
--- NOTE | 2022-08-06 11:56 | NUR ---
PER AM MEETING PATIENT TO REC A MIDLINE/PICC FOR FURTHER ABX THERAPY. NO PLANS FOR DISCHARGE AT THIS TIME.
--- NOTE | 2022-08-06 13:28 | NUR ---
RN JACLYN IN FOR MIDLINE CONSULT.
--- NOTE | 2022-08-06 14:00 | NUR ---
MIDLINE INSERTION NOTE WAS ASKED TO PLACE A MIDLINE FOR THIS PT HAS HE HAS POOR PERIPHERAL ACCESS AND IS NEEDING IV ABX. THE BASILIC, BRACHIAL, AND CEPHALIC VEINS WERE ALL IDENTIFIED. THE CEPHALIC VEIN WAS CHOSEN IT WAS APPROXIMATELY 1 CM BELOW THE SURFACE. THE VEIN EASILY COMPRESSED. RED, NONPULSITILE BLOOD RETURNED. PT REPORTS NO PAIN WITH INSERTION OR FLUSHING. THE MIDLINE CONTINUES TO DRAW BLOOD AND FLUSHES EASILY AFTER DRESSING APPLIED. EDUCATION PROVIDED TO PT.
--- NOTE | 2022-08-06 14:30 | NUR ---
pt resting, denies needs, legs unchanged - elevated. call light in reach.
--- NOTE | 2022-08-06 16:37 | NUR ---
IN ROOM WITH DR FOR PLAN OF CARE DISCUSSION. PT C/O SORE THROAT - DR WILL STOP BP MED AFTER EXAM - REPORTS SIDE EFFECT OF MEDICATION. LEGS IMPROVING, IV ABX CONTINUES. PT TALKATIVE.
--- NOTE | 2022-08-06 18:04 | NUR ---
PT I&O'S DOCUMENTED, PT STATES HE ISN'T ABLE TO EAT OR DRINK MUCH DUE TO HIS SORE THROAT. I GAVE HIM SHAVED ICE AND ICE CREAM TO HELP COOL HIS THROAT. HE IS RESTING IN BED, ON PHONE. NO OTHER NEEDS AT THIS TIME. CALL LIGHT IN REACH.
--- NOTE | 2022-08-06 19:32 | NUR ---
Received bedside report from offgoing shift, hourly rounding initiated.
--- NOTE | 2022-08-06 20:44 | NUR ---
VS AND I&O'S DOCUMENTED AND STABLE. pt REPORTS AIRWAY INTACT, CONTINUED PAIN W/ SWALLOWING, COUGH DROP IN USE BY pt. WILL CONTINUE TO MONITOR, CALL LIGHT IN REACH.
--- NOTE | 2022-08-06 21:34 | NUR ---
IN PT ROOM FOR MEDICATION ADMINISTRATION AND ASSESSMENT. PT RESTING ON BACK, BREATHING EVEN AND UNLABORED. PT PROVIDED WITH REQUESTED PAIN MEDICATION, NO FURTHER COMPLAINT. PT CALL LIGHT IN REACH.
--- NOTE | 2022-08-06 23:01 | NUR ---
IN PT ROOM FOR ROUNDING, PT REQUESTING ASSISTANCE FOR TOILETING, ICE WATER. PT ABLE TO AMBULATE SUCCESSFULLY WITH NO ASSISTANCE. PT CALL LIGHT IN REACH, NO COMPLAINT OF PAIN OR DISCOMFORT.
--- NOTE | 2022-08-07 00:38 | NUR ---
in pt room for rounding. pt watching a program on his smart phone, states no pain or discomfort. Call light in reach
--- NOTE | 2022-08-07 02:22 | NUR ---
IN PT ROOM FOR ROUNDING. PT RESTING ON BACK, WATCHING PROGRAM ON PHONE. PT STATES HE HAS NO COMPLAINT OF PAIN OR DISCOMFORT, CALL LIGHT IN REACH.
--- NOTE | 2022-08-07 04:17 | NUR ---
IN PT ROOM FOR ROUNDING. PT UP SLEEPING IN CHAIR, BREATHING EVEN AND UNLABORED, NO INDICAITON OF PAIN OR DISCOMFORT. CALL LIGHT IN REACH.
--- NOTE | 2022-08-07 08:50 | NUR ---
REPORT RECEIVED FROM NIGHT RN AND PT. CARE RESUMED. PT. IS ALERT AND ORIENTED TO ALL. HE C/O PAIN IN LOWER ABDOMEN THAT IS CRAMPING AND IN LLE. PAIN COSTUME DESIGNER. ASSESSMENT COMPLETED. CELLULITIS REDNESS BLE WITHIN OUTLINE. LLE ELEVATED ON PILLOWS. PT. ASSISTED WITH URINAL. MEDS ADMIN. WILL CONTINUE TO MONITOR.
--- NOTE | 2022-08-07 09:08 | NUR ---
COLLECTED SENT TO THE LAB
--- NOTE | 2022-08-07 09:50 | NUR ---
PT. AMBULATED TO BATHROOM AND AFTER RETURNING TO CHAIR C/O INCREASING LLE PAIN AND BECAME DIAPHORETIC. GIVEN DAMP WASHCLOTH AND TITRATED PAIN MED. VITALS TAKEN AND STABLE. DOPPLER USED TO ASSESS PEDAL PULSES. REDNESS BLE REMAINS WITHIN OUTLINE. WILL CONTINUE TO MONITOR.
--- NOTE | 2022-08-07 10:35 | NUR ---
PER AM MEETING MD ANTICIPATING NO DISCHARGE TODAY. NO CHANGE IN DC PLANS. STOPPED BY ROOM, PATIENT STATES HE IS DOING WELL.
--- NOTE | 2022-08-07 11:53 | NUR ---
PT ALERT, ORIENTED AND SITTING IN CHAIR WITH LEGS ELEVATED. PT SEEMS TO BE ENJOYING THE CHAIR RATHER THAN THE BED. PT IS PLEASANT, SAID HE PLANS ON SEEING A QUALITY CONTROL INDUSTRIAL ENGINEER ON DC. GAVE ENCOURAGEMENT AND BLESSING. WILL CONTACT FR LOJA AGAIN FOR PT-HAD TO LEAVE A MSG. WILL FOLLOW
--- NOTE | 2022-08-07 12:01 | NUR ---
PATIENT ON A REGULAR DIET. HE HAD A SORE THROAT LAST NIGHT SO DIDN'T EAT MUCH FOR DINNER. OTHERWISE HE IS EATING 100% OF MEALS. NO NUTRITION INTERVENTION NEEDED AT THIS TIME.
--- NOTE | 2022-08-07 14:22 | NUR ---
PATIENT SITTING UP IN BED. PATIENT STATED HE "WANTS TO EAT LATER", AND HIS " STOMACH WAS HURTING LIKE WHEN YOU GET THAT FIRST TASTE OF ALCOHOL". VITALS AND I/O'S COMPLETED. PATIENT REQUESTED SHOWER. THIS ULTRA SOUND TECHNICIAN SETUP THE SHOWER UP AND TAPED IV ON RIGHT ARM. CALL LIGHT WITHIN REACH.
--- NOTE | 2022-08-07 15:42 | NUR ---
PT. ASSESSMENT COMPLETED. PT HAS A POOR APPETITE AT LUNCH AND STATES HE IS STILL HAVING ABDOMINAL CRAMPING PAIN. HE AMBULATED TO BATHROOM AND HAD ANOTHER BM. UPDATED EARLIERS ABOUT ABDOMINAL PAIN. PT. ASSISTED WITH ELEVATING LEGS. DENIES FURTHER NEEDS. LEFT RESTING WITH CALL LIGHT IN REACH.
--- NOTE | 2022-08-07 17:04 | NUR ---
PT. STILL C/O PAIN ABOVE UMBILICUS. PT. ASSESSED. MD UPDATED AND NEW ORDERS PLACED.
--- NOTE | 2022-08-07 17:14 | NUR ---
RN IN ROOM TO ADMINISTER GI COCKTAIL - PT REPORTS BURNING GI PAIN 5/10. STATES IT FEELS LIKE HE "DRANK HARD ALCOHOL". PT DENIES FURTHER NEEDS AT THIS TIME. CALL LIGHT IN REACH.
--- NOTE | 2022-08-07 18:00 | NUR ---
PATIENT IN BED. VITALS AND I/O'S COMPLETED. PATIENT STILL HAS COMPLAINTS OF AN "UPSET TUMMY". CALL LIGHT WITHIN REACH.
--- NOTE | 2022-08-07 18:12 | NUR ---
DIE CUTTER DIAMOND REPORTS PT. HAS TEMP OF 100.7. UPON ASSESSMENT PT. COMPLAINS OD CONTINUED ABDOMINAL DISCOMFORT. BOWEL TONES ACTIVE AND ABDOMEN SOFT. MD UPDATED AND VERBAL ORDER GIVEN FOR BLOOD CULTURES AND MEDS. WILL CONTINUE TO MONITOR.
--- NOTE | 2022-08-07 18:26 | NUR ---
AFTER BLOOD CULTURES DRAWN, PT. REFUSES TYLENOL FOR FEVER AND STATES "IT HAS THE OPPOSITE AFFECT ON ME AND GIVES ME A TEMPERATURE." TEMPERATURE RECHECKED AND WAS 99.4F. WILL CONTINUE TO MONITOR.
--- NOTE | 2022-08-07 19:26 | NUR ---
received bedside report from offgoing shift, hourly rounding initiated
--- NOTE | 2022-08-07 20:09 | NUR ---
IN PT ROOM IN [facility] TO CALL LIGHT. PT VOMITING INTO TRASH CAN, STATES INITIALLY THAT HE IS "DONE WITH MEDICINE". PT VOMITED AGAIN AND SHELTON DECIDED HE WAS WILLING TO TRY INTERVENTIONS. PROVIDING ZOFRAN ORDERED, WILL CONTINUE TO MONITOR AND NOTIFY NECESSARY
--- NOTE | 2022-08-07 21:58 | NUR ---
PT CALLS TO REQUEST LOTION AND WATER. PROVIDED. NO OTHER NEEDS. CALL LIGHT IN REACH.
--- NOTE | 2022-08-07 23:21 | NUR ---
IN PT ROOM FOR ROUNDING. PT RESTING ON SIDE, CALL LIGHT IN REACH, DENIES PAIN OR DISCOMFORT AT THIS TIME. PT STATES ONDANSETRON "SEEMED TO WORK". PT CALL LIGHT IN REACH
--- NOTE | 2022-08-08 00:40 | NUR ---
IN PT ROOM FOR ROUNDING. PT RSTING ON SIDE, WATCHING A SHOW ON HIS PHONE. PT BREATHING IS EVEN AND UNLABORED, NO INDICAITON OR COMPLAINT OF PAIN, CALL LIGHT IN REACH.
--- NOTE | 2022-08-08 03:35 | NUR ---
In pt room for rounding. Pt provided with warm blanket, pain medicine per request. Pt call light in reach.
--- NOTE | 2022-08-08 05:20 | NUR ---
IN PT ROOM RESPOONDING TO CALL LIGHT. PT HOLDING EMESIS BAG HAVING VOMITED 500mL FLUID. PT GIVEN ZOFRAN FOR NAUSEA, NO COMPLAINT OF PAIN AT THIS TIME, VS STABLE, CALL LIGHT IN REACH
--- NOTE | 2022-08-08 08:26 | NUR ---
RN IN ROOM TO ADMINISTER SCHEDULED MEDICATIONS. PT RESTING IN CHAIR WITH LEGS ELEVATED. STATES HE IS HAVING NAUSEA WITH ABDOMINAL CRAMPING. PRN PAIN MEDICATION ADMINISTERED FOR THIS , RATES 7/10. ROOM TIDIED. CALL LIGHT IN REACH.
--- NOTE | 2022-08-08 09:13 | NUR ---
PATIENT IN CHAIR AFTER MEAL, EYES CLOSED. PATIENT REQUESTED TO KEEP THE MEAL TRAY TO "KNIBBLE" ON IT. VITALS AND I/O'S COMPLETED. ICE WATER GIVEN. CALL LIGHT WITHIN REACH.
--- NOTE | 2022-08-08 09:45 | NUR ---
RN IN ROOM TO ASSESS - STATES PATRICIA HELPED ABDOMINAL CRAMPING. SKIN ASSESSMENT SAME PREVIOUS ASSESSMENT, LOTION APPLIED TO LOWER LEGS. MIDLINE FLUSHED, SITE WNL. PT REMAINS UP IN CHAIR AND CALL LIGHT IN REACH.
--- NOTE | 2022-08-08 10:35 | NUR ---
PT USES CALL LIGHT TO REQUEST PRN ZOFRAN FOR NAUSEA - ADMINISTERED. NO VOMITING AT THIS TIME. MINIMAL BREAKFAST EATEN.
--- NOTE | 2022-08-08 12:01 | NUR ---
PATIENT AMBULATED ONE LAP AROUND THE MED/SURG FLOOR. PATIENT TOLERATED WELL BUT HAD COMPLAINTS OF HIS ANKLE NOT WANTING TO BEND WELL. STOPPING TO TAKE BREAKS OFTEN. PATIENT BACK IN ROOM ON BED. CALL LIGHT WITHIN REACH.
--- NOTE | 2022-08-08 13:24 | NUR ---
PT OFF FLOOR TO CT
--- NOTE | 2022-08-08 14:37 | NUR ---
PT LAYING ON BED. PT DID NOT WANT LUNCH, BUT THIS RHEOSTAT ASSEMBLER OFFERED ENSURE AND ICE CREAM. CALL WAS MADE TO DIETARY FOR SOFT AND BITE SIZED FOOD. VITALS AND I/O'S COMPLETED. CALL LIGHT WITHIN REACH.
--- NOTE | 2022-08-08 14:44 | NUR ---
RN IN ROOM TO ADMIN CARAFATE - PT RESTING IN BED WITH LEG ELEVATED. STATES LOWER BACK IS HURTING, ENCOURAGED AMBULATION.
--- NOTE | 2022-08-08 15:30 | NUR ---
RN IN ROOM TO ASSESS PT - PT NAUSEA IS IMPROVED BUT PAINFUL. PT EDUCATED ON CT RESULTS AND UPDTATE ON POC. PT STATES UNDERSTANDING. ABX INFUSION STARTED. PT UP IN CHAIR AFTER AMBULATING TO BATHROOM BY SELF.
--- NOTE | 2022-08-08 18:00 | NUR ---
rn in room rounding on pt - 600ml emesis produced. pt unable to eat dinner. pain and symptoms remain unchanged. abx finished infusing. pt resting in bed and denies needs at this time. call light in reach.
--- NOTE | 2022-08-08 18:56 | NUR ---
md notified of pts bp this evening as well as pts request for iv pain medication. awaiting orders.
--- NOTE | 2022-08-08 19:46 | NUR ---
RECEIVED REPORT FROM DAY SHIFT RN. PATIENT IS RESTING IN BED. DAY SHIFT RN IN TO ADMIN PRN MEDS.
--- NOTE | 2022-08-08 21:50 | NUR ---
PATIENT ASSESMENT COMPLETED. PATIENTS VITALS TAKEN AND RECORDED. PATIENTS INTAKE AND OUTPUT RECORDED. PATIENTS IV INFUSING PER ORDER. PATIENT REPORTS NAUSEA, PRN MEDS GIVEN PER ORDER. PATIENT REQUESTS TO WAIT TO TRY AND TAKE HIS PM MEDS. NO FURTHER NEEDS NOTED AT THIS TIME. CALL LIGHT IN REACH.
--- NOTE | 2022-08-08 22:00 | NUR ---
PATIENT PROVIDED WITH BROTH AND FERSH IS WATER PER REQUEST. NO FURTHER NEEDS NOTED. CALL LIGHT IN REACH. PATIENT SITTING UP ON BED. IV INFUSING PER ORDER.
--- NOTE | 2022-08-08 22:45 | NUR ---
PATIENT ABLE TO TOLERATE BROTH. PATIENT ASSISTED TO RECLINER. IV INFUSING PER ORDER. PATIENT IS REFUSING HIS PM CARAFATE AND COREG. EDUCATED PATIENT THAT CARAFATE WILL HELP COAT HIS STOMACH AND THAT THE COREG IS FOR HIS HTN. PATIENT STATED "I AM TIRED OF PILLS BEING THROWN AND MY PROBLEMS". EDUCATED PATIENT THAT MEDICATION REQUIREMENTS CHANGE OUR BODY DEMANDS DO. PATIENT CONTINUES TO REFUSE. PATIENT DENIES ANY FURTHER NEEDS. CALL LIGHT AND BELONGINGS ARE WITHIN REACH.
--- NOTE | 2022-08-09 00:26 | NUR ---
PATIENT ASSISTED BACK TO BED. PATIENT DENIES ANY PAIN OR NAUSEA. PATIENT IS NOW RESTING IN BED. IV INFUSING PER ORDER. PATIENT DENIES ANY FURTHER NEEDS. CALL LIGHT IN REACH.
--- NOTE | 2022-08-09 01:14 | NUR ---
PATIENT UP TO BR AND ABLE TO VOID. PATIENT IS BACK IN BED RESTING. PATIENT REPORTS NAUSEA, PRN MEDS GIVEN PER ORDER. PATIENT DENIES ANY FURTHER NEEDS. CALL LIGHT IN REACH. IV INFUSING PER ORDER.
--- NOTE | 2022-08-09 01:28 | NUR ---
IN TO ANSWER CALL LIGHT. IV ALARMING, RESOLVED. NEW BAG OF FLUIDS STARTED, SEE MAR. SARAH RN IN ROOM. NO OTHER NEEDS FROM THIS RN AT THIS TIME.
--- NOTE | 2022-08-09 02:15 | NUR ---
PATIENT IS RESTING IN BED WITH EYES CLOSED, RR 17. CALL LIGHT IN REACH. MOTHER ASLEEP IN RECLINER. IV INFUSING PER ORDER.
--- NOTE | 2022-08-09 02:18 | NUR ---
PATIENT IS RESTING IN BED WITH EYES CLOSED, RR 19. IV INFUSINF PER ORDER. CALL LIGHT IN REACH.
--- NOTE | 2022-08-09 03:29 | NUR ---
PATIENT ASSISTED TO THE RECLINER. PATIENT REPORTS 7/10 ABD PAIN. PATIENT REFUSED BENTLY. PRN PAIN MEDICATION GIVEN PER ORDER. PATIENTS IV INFUSING PER ORDER. CALL LIGHT AND BELONGINGS ARE WITHIN REACH.
--- NOTE | 2022-08-09 04:15 | NUR ---
PATIENT IS RESTING IN RECLINER WITH EYES CLSOED, RR17. CALL LIGHT IN REACH.
--- NOTE | 2022-08-09 05:30 | NUR ---
PATIENT ASSISTED TO WALK X1 LAP AROUND THE MEDICAL FLOOR. PATIENT BACK IN BED RESTING. IV SL FOR 10MIN, FLUSHED WITH 10ML NS, WASTED 10ML NS, JONNY BLOOD FOR LAB, PLACED BLOOD IN APPROPROATE TUBES, LABELED AND SENT TO LAB. PATIENTS IV INFUSING PER ORDER. PATIENT PROVIDED WITH BROTH AND FRESH ICE WATER. PATIENT DENIES ANY PAIN OR NAUSEA AT THIS TIME. LOTION APPLIED TO PATIENTS LEGS. PATIENT DENIES ANY FURTHER NEEDS. CALL LIGHT IN REACH.
--- NOTE | 2022-08-09 06:11 | NUR ---
PATIENT IS RESTING IN BED WATCHING TV. PATIENT WA ABLE TO EAT BROTH. PATIENT DENIES ANY PAIN OR NAUSEA. NO FURTHER NEEDS NOTED. CALL LIGHT IN REACH.K IV INFUSING PER ORDER.
--- NOTE | 2022-08-09 08:03 | NUR ---
report received from night rn - poc reviewed.
--- NOTE | 2022-08-09 08:27 | NUR ---
RN IN ROOM TO ADMINISTER SCHEDULED MEDICATIONS. PT RATES PAIN 7/10 IN ABDOMEN, PRN ADMINISTERED FOR THIS. PT DENIES NAUSEA CURRENTLY, LOOKING FORWARD TO EATING BREAKFAST. EDUCATION PROVIDED FOR BP MEDS WELL GASTRIC MEDICATIONS. PT STATES UNDERSTANDING AND AGREES TO TAKE PREIVOUSLY REFUSED MEDICATIONS.
--- NOTE | 2022-08-09 12:01 | NUR ---
RN IN ROOM TO ANSWER CALL LIGHT. PT REPORTS PAIN AND NAUSEA - PRN'S GIVEN FOR THIS. MIDLINE DRESSING CHANGED AFTER SHOWER USING STERILE TECHNIQUE. PT REPORTS GENERALLY FEELING IMPROVED.
--- NOTE | 2022-08-09 14:47 | NUR ---
PATIENT IN BED AFTER MEAL. VITALS AND I/O'S COMPLETED. CALL LIGHT WITHIN REACH.
--- NOTE | 2022-08-09 15:07 | NUR ---
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
--- NOTE | 2022-08-09 16:35 | NUR ---
RN IN ROOM TO ADMINISTER SCHEDULED MEDICATIONS. PT ASLEEP IN BED, RR EVEN AND UNLABORED.
--- NOTE | 2022-08-09 19:30 | NUR ---
RECEIVED REPORT FROM YUKI DILL. PT IS A/O, RESPIRATIONS EVEN AND REGULAR. PT TRANSFERRED SELF FROM BED TO CHAIR. ASSESSMENT COMPLETED. PAIN MEDICATION GIVEN FOR PAIN RATING 7/10. CALL LIGHT WITHIN REACH.
--- NOTE | 2022-08-09 20:46 | NUR ---
PATIENT IS RESTING IN BED. PATIENT PROVIDED WITH FRESH ICE WATER AND SEVEN UP. LOTION APPLIED TO PATIENTS BILAT LOW EXT. IV INFUSING PER ORDER. NO FURTHER NEEDS NOTED. CALL LIGHT IN REACH.
--- NOTE | 2022-08-09 21:06 | NUR ---
TO PT ROOM FOR MEDICATION ADMINISTRATION. PT IS A/O, RESPIRATIONS EVEN AND REGULAR. PT IS BACK IN BED. CALL LIGHT WITHIN REACH. IV FLUIDS RUNNING.
--- NOTE | 2022-08-09 22:22 | NUR ---
ROUNDED ON PT. PT IS SITTING UP IN CHAIR WITH LEGS UP. APPEARS TO BE SLEEPING COMFORTABLY. RESPIRATIONS EVEN AND REGULAR. PT IS INDEPENDANT IN ROOM.
--- NOTE | 2022-08-09 23:15 | NUR ---
ANSWERED CALL LIGHT. ICE WATER PROVIDED. EMPTIED URINAL. PATIENT WALKED IN THE HALLWAY X1. PATIENT IS BACK IN BED. PATIENT ASKED FOR PAIN MEDS. PRIMARY RN NOTIFIED.
--- NOTE | 2022-08-09 23:40 | NUR ---
PT REQUESTING PAIN MEDICATION AFTER AMBULATING IN THE PASCUAL. RATES PAIN /10. IV FLUIDS RUNNING. CALL LIGHT WITHIN REACH.
--- NOTE | 2022-08-10 00:50 | NUR ---
PT ASSESSMENT COMPLETED. PT IS A/O, RESPIRATIONS EVEN AND REGULAR. C/O ABD CRAMPING/BLOATING PRN BENTYL GIVEN. CALL LIGHT WITHIN REACH.
--- NOTE | 2022-08-10 02:04 | NUR ---
URINE SAMPLE COLLECTED AND SENT TO LAB.
--- NOTE | 2022-08-10 03:00 | NUR ---
NEW BAG OF IV FLUIDS HUNG. PT REQUESTED 325MG TYLENOL FOR PAIN. PT IS A/O, RESPIRATIONS EVEN AND REGULAR. CALL LIGHT WITHIN REACH.
--- NOTE | 2022-08-10 05:22 | NUR ---
PT APPEARS TO BE SLEEPING COMFORTABLY. RESPIRATIONS EVEN AND REGULAR. IV FLUIDS RUNNING.
--- NOTE | 2022-08-10 05:47 | NUR ---
PT IN BED. VITALS AND IS AND OS COMPLETE. PT REFUSED TO GET OUT OF BED AND STATED HE WILL GET UP HIMSELF LATER ON. ICE WATER PROVIDED TO PT. NO FURTHER NEEDS. CALL LIGHT WITHIN REACH
--- NOTE | 2022-08-10 06:08 | NUR ---
MEDICATION ADMINISTRATION COMPLETED. PT IS A/O, RESPIRATIONS EVEN AND REGULAR. STATES HE IS HAVING PAIN, BUT STATES HE DOES NOT WANT PAIN MEDICATION ATT. IV FLUIDS RUNNING.
--- NOTE | 2022-08-10 07:32 | NUR ---
PT RESTING IN BED, WATCHING TV AT TIME OF SHIFT REPORT. FRESH H20 AT BEDSIDE CALL LIGHT IN REACH.
--- NOTE | 2022-08-10 08:49 | NUR ---
PT IN BED. VITALS AND IS AND OS COMPLETE. PT REQ TRAY BE LEFT IN ROOM. ICE WATER PROVIDED. NO FURTHER NEEDS. CALL LIGHT WITHIN REACH
--- NOTE | 2022-08-10 11:00 | NUR ---
PT REFUSES CLEAR LIQUID TRAY THIS MORNING STATES HE HAS LOOSE STOOLS. DISCUSSED ABX AND POSSIBLE CAUSE. PT WANTS A TUNA SANDWICH. NO C/O PAIN OR DISCOMFORTS THIS SHIFT. PT HAS BEEN UP TO TOILET INDEPENDANTLY X2, RESTING IN BED NOW.
--- NOTE | 2022-08-10 11:42 | NUR ---
PT RESTING IN BED EYES CLOSED BREATHING EVEN AND UNLABORED
--- NOTE | 2022-08-10 12:29 | NUR ---
DR GRESHAM IN TO SEE PT DIET ADVANCED TO SOFT. PT AGREES HE IS READY FOR IT. HAS NO C/O DISCOMFORTS THIS SHIFT. NO SORE THROAT, NO ABDOMINAL PAIN OR OTHER
--- NOTE | 2022-08-10 13:07 | NUR ---
PT TOLERATES 1/2 SANDWICH WELL. DENIES DIFFICULTY SWALLOWING PAIN OR OTHER DISCOMFORTS. CONTINUES TO MOVE INDEPENDANTLY AROUND THE ROOM DENIES NEEDS OF
--- NOTE | 2022-08-10 14:32 | NUR ---
INTO CHECK ON PATIENT. PATIENT SITTING UP AT THE SIDE OF THE BED GETTING READY TO WALK WITH STAFF. PATIENT STATES HE IS DOING GOOD. REEVALUATED CURRENTY DC PLAN, PATIENT WILL RETURN HOME WITH FAMILY. PATIENT DOES FEEL THAT A WALKER MAY BE HELPFUL AT DISCHARGE. ADVISED I WILL DISCUSS AN ORDER FOR A WALKER WITH DR. GRESHAM.
--- NOTE | 2022-08-10 14:40 | NUR ---
PT UP AMBULATING THE PASCUAL
--- NOTE | 2022-08-10 16:30 | NUR ---
PT HAS GONE FROM CHAIR TO BED TO CHAIR SEVERAL TIMES THIS SHIFT. RESETING IN BED NOW, ABX INFUSING
--- NOTE | 2022-08-10 17:37 | NUR ---
PT TO BSC DOES NOT VOID OR HAVE A BM. TRANSFERRED TO CHAIR, MOM IS PRESENT NOW ASSISTING WITH EVENING MEAL.
--- NOTE | 2022-08-10 19:52 | NUR ---
ASSUMED CARE OF PT UPON RECEIVING BEDSIDE HANDOFF REPORT FROM DAY NURSE. PT AWAKE IN BED, NAD, NO C/O. WILL CONTINUE TO MONITOR AND FOLLOW POC.
--- NOTE | 2022-08-11 01:04 | NUR ---
CALL LIGHT ANSWERED. PT REPORTS GENERALIZED PAIN 01/04. PRN FOR PAIN ADMIN PER EMAR. PRIMARY RN AWARE.
--- NOTE | 2022-08-11 03:58 | NUR ---
IV PUMP ALARMING. ISSUE RESOLVED. NEW BAG IVF INFUSING WNL. URINAL EMPTIED AND FRESH WATER PROVIDED. PT SITTING IN RECLINER. PILLOW PLACED UNDER LEFT LEG PER REQUEST. NO FURTHER NEEDS.
--- NOTE | 2022-08-11 06:55 | NUR ---
PT WITH NO ACUTE EVENTS OVERNIGHT. VSS. PT C/O INSOMNIA LAST PM. REFUSED MELATONIN EARLIER IN THE EVENING. EDUCATED HIM ON MELATONIN AND ENCOURAGED HIM TO ASK FOR IT THIS PM IF NEEDED. ALSO EDUCATED HIM ON DECREASING STIMULATION IN HIS ENVIRONMENT TO FACILITATE BETTER SLEEP HYGIENE. WILL CONTINUE TO MONITOR AND FOLLOW POC.
--- NOTE | 2022-08-11 07:18 | NUR ---
PT SITTING UP IN THE RECLINER AT TIME OF SHIFT REPORT. AGREES HE IS COMFORTABLE DENIES NEEDS OF
[2022-08-11] MEDS ORDERED: CARVEDILOL6.25 MG PO (09:21)
[2022-08-11] MEDS ORDERED: HYDROCHLOROTHIA25 MG PO (09:22)
[2022-08-11] MEDS ORDERED: DOXYCYCLINE HY100 MG PO (09:23)
--- NOTE | 2022-08-11 10:00 | NUR ---
Spoke with Vladimir. He plans on dc today. Asked if he needs a walker, and he states no. He has his grandmothers bariatric walker in the closet. He denies needs and plans on dc to home today. He cont. to stay with his aunt and uncle.
--- NOTE | 2022-08-11 10:51 | NUR ---
DC INSTRUCTIONS PROVIDED IN WRITING AFTER VERBAL EDUCATION. ALL QUESTIONS ANSWERED PT DENIES FURTHER QUESTIONS. HOME MEDS RETURNED. MIDLINE IV REMOVED SITE INTACT ED PROVIDED
== END 2022-08-11 10:30 | disposition home or self-care (01) | DRG 872 ==
LOC: ED 14:03 → MS 17:19
PROVIDERS: ADMIT Family Medicine; ATTEND Internal Medicine
DX: A41.9 Sepsis, unspecified organism (principal); L03.115 Cellulitis of right lower limb; L03.116 Cellulitis of left lower limb; Z68.44 Body mass index [BMI] 60.0-69.9, adult; Z20.822 Contact with and (suspected) exposure to COVID-19; I10 Essential (primary) hypertension; T78.3XXA Angioneurotic edema, initial encounter; E66.01 Morbid (severe) obesity due to excess calories; T44.5X5A Adverse effect of predominantly beta-adrenoreceptor agonists, initial encounter; E83.39 Other disorders of phosphorus metabolism; Z88.6 Allergy status to analgesic agent; Z88.8 Allergy status to other drugs, medicaments and biological substances; Z79.2 Long term (current) use of antibiotics; Z79.899 Other long term (current) drug therapy; X58.XXXA Exposure to other specified factors, initial encounter
CPT/HCPCS: 36415; 36569; 71045; 73701; 73706; 74177; 80048; 80053; 80202; 81001; 83605; 83690; 83735; 84100; 85007; 85025; 85610; 85730; 86140; 87040; 87502; 96365; 96375; 99285-25; A9270; C1751; C9803; J0692; J0696; J0780; J0878; J1650; J1885; J2270; J2405; J3370; J7060; J7121; Q9967; U0003

== ENCOUNTER 2024-06-24 21:48 | Emergency (ER) | payer OTHER ==
[~2024-06-24] VITALS: Ht 172.7 cm; Wt 199.6 kg
[~2024-06-24 21:48] MED LIST changes: +CARVEDILOL6.25 MG PO; +HYDROCHLOROTHIA25 MG PO; +LISINOPRIL-HCT1 EACH PO
[2024-06-24] MEDS ORDERED: MECLIZINE HCL 25 MG TAB PO ONE (22:15)
[2024-06-24 22:33] LABS: BASOPHILS 0.6 % (0-2); EOSINOPHILS 3.3 % (0-6); HEMATOCRIT 48.7 % (35.0-50.0); HEMOGLOBIN 16.3 g/dL (12.0-18.0); LYMPHOCYTES 23.3 % (24-44); MCH 29.1 (27-36); MCHC 33.5 g/dl (30-36); MONOCYTES 8.9 % (0-12); NEUTROPHILS 63.9 % (39-80); PLATELET COUNT 329 K/uL (140-440); RDW 13.4 (10.5-15.0)
[2024-06-24 22:47] LABS: ALBUMIN 3.4 g/dL (3.4-5.0); ALBUMIN/GLOBULIN RATIO 0.77 (1.1-2.4); ANION GAP 9.6 (7-21); BILIRUBIN, TOTAL 0.6 ng/dL (0.2-1.0); BUN/CREATININE RATIO 9.3 (6.0-28.6); CALCIUM 8.8 mg/dL (8.5-10.1); CREATININE, SERUM 0.86 mg/dL (0.70-1.30); POTASSIUM 3.6 mmol/L (3.5-5.1); PROTEIN, TOTAL 7.8 g/dL (6.4-8.2)
[2024-06-24] MEDS ORDERED: MECLIZINE HCL25 MG PO (23:22)
[2024-06-24 23:36] VITALS: BP 137/72
--- NOTE | 2024-06-28 20:24 | EKG ---
[facility] [address] [place] [address] Signed Normal sinus rhythm Possible Inferior infarct , age undetermined Abnormal ECG When compared with ECG of 14-OCT-2021 00:42, Borderline criteria for Inferior infarct are now present Confirmed by Jason Gutierrez DO ([id number]) on 06/28/2024 8:23:54 PM Electronically Signed By: JASON GUTIERREZ DO 06/28/242023 PATIENT NAME: FARIASALECIA Electrocardiogram DATE OF : 89 PHYSICIAN: JASON GUTIERREZ DO REPORT #: [id number] REPORT IS CONFIDENTIAL AND NOT TO BE RELEASED WITHOUT AUTHORIZATION
== END 2024-06-24 23:37 | disposition home or self-care (01) ==
LOC: ED 21:48
PROVIDERS: Internal Medicine
DX: L03.116 Cellulitis of left lower limb (principal); H81.10 Benign paroxysmal vertigo, unspecified ear; I10 Essential (primary) hypertension; F17.200 Nicotine dependence, unspecified, uncomplicated; E66.01 Morbid (severe) obesity due to excess calories; Z88.5 Allergy status to narcotic agent; Z79.899 Other long term (current) drug therapy
CPT/HCPCS: 36415; 80053; 83735; 83880; 84484; 85025; 93005; 93010; 99284; A9270

== ENCOUNTER 2024-07-12 19:55 | Emergency (ER) | payer OTHER ==
[~2024-07-12] VITALS: Ht 172.7 cm; Wt 203.7 kg
[~2024-07-12 19:55] MED LIST changes: +MECLIZINE HCL25 MG PO
--- OUTSIDE RECORDS SUMMARY | 2024-07-12 20:01 | XMS ---
PreManage Notification: ALECIA FARIAS Security Change Booth Attendant Events No recent Security Events currently on file CRITERIA MET - [facility] - 2 Visits in 30 Days CARE PROVIDERS -, [facility] Dentist: Tetryl Boiling Tub Operator Current [place] PHONE: [phone] -[facility]- Dentist: Tetryl Boiling Tub Operator Current [facility] PHONE: [phone] [facility]: [facility] PHONE: [phone] RIGO GRANADO Emergency Medicine Current PHONE: Unknown Abi has no Care Guidelines for this patient. Carole VISIT COUNT (12 MO.) 2 [facility] TOTAL 2 NOTE: Visits indicate total known visits. ED/UCC VISIT TRACKING (12 MO.) 07/12/2024 19:55 [facility] [place] TYPE: Emergency COMPLAINT: - CHEST PAIN 06/24/2024 21:49 [facility] [place] TYPE: Emergency COMPLAINT: - DIZZINESS DIAGNOSES: - Allergy status to narcotic agent - Benign paroxysmal vertigo, unspecified ear - Dizziness and giddiness - Essential (primary) hypertension - Morbid (severe) obesity due to excess calories - Nicotine dependence, unspecified, uncomplicated - Other [facility] drug therapy INPATIENT VISIT TRACKING (12 MO.) No inpatient visits to display in this time frame [email or web address]
[2024-07-12] MEDS ORDERED: LISINOPRIL20 MG PO (20:05)
[2024-07-12] MEDS ORDERED: NITROGLYCERIN 0.4 MG SUBL SL PRN (20:15)
[2024-07-12] MEDS ORDERED: ASPIRIN 81 MG CHEW PO ONE (20:15)
[2024-07-12 20:27] LABS: BASOPHILS 0.7 % (0-2); HEMATOCRIT 45.9 % (35.0-50.0); HEMOGLOBIN 15.4 g/dL (12.0-18.0); LYMPHOCYTES 27.1 % (24-44); MCH 29.4 (27-36); MCHC 33.6 g/dl (30-36); MCV 87.3 fl (81-99); MONOCYTES 7.9 % (0-12); NEUTROPHILS 60.3 % (39-80); PLATELET COUNT 323 K/uL (140-440); RBC 5.26 M/ul (4.3-5.7); RDW 13.9 (10.5-15.0)
[2024-07-12 20:44] LABS: ALBUMIN 3.2 g/dL (3.4-5.0); ALBUMIN/GLOBULIN RATIO 0.74 (1.1-2.4); ANION GAP 7.6 (7-21); BILIRUBIN, TOTAL 0.4 ng/dL (0.2-1.0); BUN/CREATININE RATIO 10.37 (6.0-28.6); CALCIUM 8.8 mg/dL (8.5-10.1); CREATININE, SERUM 1.06 mg/dL (0.70-1.30); MAGNESIUM 1.7 mg/dL (1.8-2.4); POTASSIUM 3.6 mmol/L (3.5-5.1); PROTEIN, TOTAL 7.5 g/dL (6.4-8.2)
[2024-07-12] MEDS ORDERED: FAMOTIDINE 20 MG/ 2 ML VIAL IV ONE (20:45)
[2024-07-12] MEDS ORDERED: LACTATED RINGER'S 1,000 ML IV ONE (20:45)
[2024-07-12 20:51] LABS: TSH, 3RD GENERATION 2.319 uIU/mL (0.358-3.740)
[2024-07-12 21:01] LABS: BILIRUBIN, URINE NEGATIVE (negative); BLOOD/HGB, URINE NEGATIVE (Negative); KETONE, URINE NEGATIVE (Negative); LEUK ESTERASE, URINE NEGATIVE (negative); NITRITE, URINE NEGATIVE (negative)
[2024-07-12 21:15] LABS: AMPHETAMINES, URINE NEGATIVE (NEGATIVE); BARBITURATES, URINE NEGATIVE (NEGATIVE); BENZODIAZEPINE, URINE NEGATIVE (NEGATIVE); BUPRENORPHINE, URINE NEGATIVE (NEGATIVE); CANNABINOID, URINE NEGATIVE (NEGATIVE); COCAINE, URINE NEGATIVE (NEGATIVE); ECSTASY, URINE NEGATIVE (NEGATIVE); FENTANYL, URINE NEGATIVE (NEGATIVE); METHADONE, URINE NEGATIVE (NEGATIVE); OPIATES, URINE NEGATIVE (NEGATIVE); OXYCODONE, URINE NEGATIVE (NEGATIVE); PHENCYCLIDINE, URINE NEGATIVE (NEGATIVE)
[2024-07-12 22:21] VITALS: BP 144/84
--- NOTE | 2024-07-14 10:16 | EKG ---
[facility] [address] [place] [address] Signed Sinus tachycardia Otherwise normal ECG When compared with ECG of 24-JUN-2024 22:29, Borderline criteria for Inferior infarct are no longer present Confirmed by Kamar Gutierrez DO ([id number]) on 07/14/2024 10:16:47 AM Electronically Signed By: KAMAR GUTIERREZ DO 07/14/24 1016 PATIENT NAME: DINORAALECIA Electrocardiogram DATE OF : 89 PHYSICIAN: KAMAR GUTIERREZ DO REPORT #: [id number] REPORT IS CONFIDENTIAL AND NOT TO BE RELEASED WITHOUT AUTHORIZATION
== END 2024-07-12 22:18 | disposition home or self-care (01) ==
LOC: ED 19:55
PROVIDERS: Internal Medicine
DX: R07.89 Other chest pain (principal); F41.9 Anxiety disorder, unspecified; E66.01 Morbid (severe) obesity due to excess calories; I10 Essential (primary) hypertension; F17.200 Nicotine dependence, unspecified, uncomplicated; Z88.5 Allergy status to narcotic agent; Z79.899 Other long term (current) drug therapy
CPT/HCPCS: 36415; 71045; 80053; 80307; 81003; 83735; 83880; 84443; 84484; 85025; 85379; 93005; 93010; 99285-25; A9270; J7121